=== PATIENT | male | born 1960 | race Caucasian/White ===

== ENCOUNTER 2024-12-26 14:24 | Day surgery (SDC) | payer MEDICARE ==
[2024-12-26] MEDS ORDERED: LIDOCAINE HCL 1% AMPUL 5 ML IJ ONE (14:25)
[2024-12-26] MEDS ORDERED: BUPIVACAINE 0.5% VIAL IJ ONE (14:25)
[2024-12-26] MEDS ORDERED: Depo-Medrol 40 MG/ML IM ONE (14:25)
--- NOTE | 2024-12-26 20:47 | XRAY ---
Indication: Left shoulder injection. Intraoperative fluoroscopy provided for 8 seconds. Single digital spot image submitted for interpretation demonstrates needle tip projecting over left glenohumeral joint superiorly. Small amount of contrast injected for needle tip placement. Correlate with intraoperative findings/report.
--- NOTE | 2024-12-26 20:48 | XRAY ---
Indication: Right shoulder injection. Intraoperative fluoroscopy provided for 6 seconds. Single digital spot image submitted for interpretation demonstrates needle tip projecting over right glenohumeral joint superiorly. Small amount of contrast injected for needle tip placement. Correlate with intraoperative findings/report.
--- NOTE | 2024-12-27 19:24 | XRAY ---
6 seconds of fluoroscopy was used in surgery for a right intra-articular shoulder injection.
--- NOTE | 2024-12-27 19:25 | XRAY ---
8 seconds of fluoroscopy was used in surgery for a left intra-articular shoulder injection.
== END 2024-12-26 18:05 | disposition home or self-care (01) ==
LOC: SDC-PAIN 14:24
PROVIDERS: ATTEND Psychiatry & Neurology Pain Medicine
DX: M19.012 Primary osteoarthritis, left shoulder (principal); M19.011 Primary osteoarthritis, right shoulder
CPT/HCPCS: 20610; 73030; 77002; Q9966